=== PATIENT | female | born 1970 | race Caucasian/White ===

== ENCOUNTER 2016-05-12 15:15 | Emergency (ER) | payer OTHER ==
[~2016-05-12] VITALS: Ht 177.8 cm; Wt 75.0 kg
[2016-05-12 15:29] VITALS: BP 115/85; PULSE 82; RESP 16; TEMP 98.2; O2SAT 100
--- NOTE | 2016-05-12 16:04 | PD ---
HPI Chief Complaint: Skin Problem Time Seen by Provider: 16:03 Travel History International Travel<30 days: No Contact w/Intl Traveler<30days: No Traveled to known affect area: No History of Present Illness HPI 45-year-old left-hand dominant female presents to the ED for evaluation of "months long" history of right elbow pain. Gradual onset, worsened by certain motions. Worsened by certain motions. States that the pain sometimes "shoots" into the elbow. She denies injury to the area. Denies numbness, tingling, weakness, limitations to range of motion of the right upper extremity. 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 No treatment attempted at home. PFSH Past Medical History Medical History: Denies Significant Hx Diminished Hearing: No Tetanus Vaccination: > 5 Years Influenza Vaccination: No ?: Not Past Surgical History Surgical History: No Previous Surgery Social History Alcohol Use: Yes Tobacco Use: Yes (03/24 PPD) Substance Use: No Allergies-Medications (Allergen,Severity, Reaction): Coded Allergies: No Known Allergies (Verified , 05/12/16) Uncoded Allergies: NARCOTICS (Adverse Reaction, Unknown, Psychosis, 05/29/10) Reported Meds & Prescriptions Reported Meds & Active Scripts Active MATT Tennis Elbow Strap/Cu (Elastic Bandages & Supports) 1 Mis Mis Bandage wear on right arm while working Ibuprofen 600 Mg Tab 600 Mg PO Q8HR Review of Systems Except as stated in HPI: all other systems reviewed are Neg Physical Exam Narrative GENERAL: Well-nourished, well-developed patient. SKIN: Warm and dry. There is a 1.5 cm firm, nontender, mobile nodule just distal to the antecubital area of the right forearm. Consistent with lipoma. HEAD: Normocephalic. EYES: No scleral icterus. No injection or drainage. NECK: Supple, trachea midline. No JVD or lymphadenopathy. CARDIOVASCULAR: Regular rate and rhythm without murmurs, gallops, or rubs. RESPIRATORY: Breath sounds equal bilaterally. No accessory muscle use. GASTROINTESTINAL: Abdomen soft, non-tender, nondistended. MUSCULOSKELETAL: No cyanosis, or edema. FOCUSED RIGHT UPPER EXTREMITY EXAM: 2+ radial pulse. There is localized tenderness in the lateral epicondyle of the right humerus. There is pain with resisted wrist extension and terminal wrist flexion with the elbow in full extension. No limitations to range of motion of the elbow or wrist. Patient has strong turnaround engineer strength. Negative Tinel sign. Sensation intact to light touch distally. Cap refill less than 2 seconds. BACK: Nontender without obvious deformity. No CVA tenderness. Data Data Last Documented VS Vital Signs Date Time Temp Pulse Resp B/P Pulse Ox O2 Delivery O2 Flow Rate FiO2 05/12/16 15:29 98.2 82 16 115/85 100 MDM Medical Decision Making Medical Screen Exam Complete: Yes Emergency Medical Condition: Yes Differential Diagnosis tennis elbow versus carpal tunnel versus osteoarthritis versus Narrative Course 45-year-old left-hand dominant female presents to the ED for evaluation of right elbow pain. Gradual onset, worsened by certain motions, shooting into the elbow. She denies injury to the area,numbness, tingling, weakness, limitations to range of motion of the right upper extremity. 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 Vitals reviewed. Physical exam reveals a nontoxic-appearing white female in no acute distress. Patient has a 1.5 cm rubbery, mobile, painless nodule just distal to the antecubital area on the anterior aspect of the right elbow, consistent with lipoma. Focused right upper extremity exam reveals localized tenderness in the lateral epicondyle of the right humerus, pain with resisted wrist extension and internal versus flexion with elbow in full extension. No limitations to range of motion of the elbow or wrist, strong turnaround engineer strength, negative Tinel sign, neurovascularly intact. Physical exam consistent with tennis elbow. Patient was prescribed short course of anti-inflammatory medications and the Velcro brace. She is instructed to use the brace when working, take medications as needed, follow up with the orthopedist or her primary care provider. She indicated understanding of the instructions and is amenable to plan of care. She is stable and discharged home. Diagnosis Primary Impression: Lateral epicondylitis of right elbow Referrals: Orthopedist Patient Instructions: General Instructions, Tennis Elbow (ED), Tennis Elbow Exercises (GEN) Additional Instructions: Rest, ice, elevate the extremity. Apply ice no longer than 10-15 minutes per hour a few times a day. 600 mg ibuprofen up to 3 times a day as needed for pain, swelling. Return to normal, gentle activity as tolerated. Wear a velco brace for tennis elbow, available over the counter at the drug store, Follow up with orthopedist or your primary care provider. Return to the ED for any urgent or emergent medical condition. Med/Other Pt SpecificInfo: Prescription(s) given Scripts Elastic Bandages & Supports (MATT Tennis Elbow Strap/Cu)1 Mis Mis #1 Bandage wear on right arm while working Prov:Hafsa Wallace MD 05/12/16 Ibuprofen 600 Mg [id number] Mg PO Q8HR #15 TAB Ref 0 Prov:Hafsa Wallace MD 05/12/16 Disposition: 01 DISCHARGE HOME Condition: Stable Milena Mckeon May 12, 2016 16:04
[2016-05-12] MEDS ORDERED: IBUP-232 PO (16:12)
[2016-05-12] MEDS ORDERED: [UNRECOGNIZED DRUG - CODE] (16:12)
== END 2016-05-12 16:21 | disposition home or self-care (01) ==
LOC: PHEFT 15:15
DX: M77.11 Lateral epicondylitis, right elbow (principal); F17.210 Nicotine dependence, cigarettes, uncomplicated
CPT/HCPCS: 99283

== ENCOUNTER 2017-04-09 04:05 | Emergency (ER) | payer SELFPAY ==
[~2017-04-09] VITALS: Ht 177.8 cm; Wt 74.5 kg
[~2017-04-09 04:05] MED LIST: IBUP-232 PO; [UNRECOGNIZED DRUG - CODE]
[2017-04-09 04:07] VITALS: BP 137/97; PULSE 88; RESP 18; TEMP 97.5; O2SAT 98
--- NOTE | 2017-04-09 04:39 | PD ---
HPI Chief Complaint: Laceration/Skin Injury Time Seen by Provider: 04:34 Travel History International Travel<30 days: No Contact w/Intl Traveler<30days: No Traveled to known affect area: No History of Present Illness HPI 46-year-old left hand dominant white female presents to emergency department with a laceration to her right hand from a piece of glass that she was washing this evening. She states the glass broke cutting her hand. Patient's up-to- date with immunizations. She states the pain is mild. She denies any numbness or tingling. No foreign body sensation. No weakness. No alleviating factors. Worse with movement and palpation. PFSH Past Medical History Medical History: Denies Significant Hx Diminished Hearing: No Tetanus Vaccination: > 5 Years Influenza Vaccination: No ?: Not LMP: 04/02/16 Past Surgical History Surgical History: No Previous Surgery Social History Alcohol Use: Yes (occaisonal alcohol ) Tobacco Use: Yes (03/24 PPD) Substance Use: No Allergies-Medications (Allergen,Severity, Reaction): Coded Allergies: No Known Allergies (Verified , 05/12/16) Uncoded Allergies: NARCOTICS (Adverse Reaction, Unknown, Psychosis, 05/29/10) Reported Meds & Prescriptions Reported Meds & Active Scripts Active No Active Prescriptions or Reported Medications Review of Systems General / Constitutional: No: Fever Eyes: No: Visual changes HENT: No: Headaches Cardiovascular: No: Chest Pain or Discomfort Respiratory: No: Shortness of Breath Gastrointestinal: No: Abdominal Pain Genitourinary: No: Dysuria Musculoskeletal: No: Pain Skin: No Rash Neurologic: No: Weakness Psychiatric: No: Depression Endocrine: No: Polydipsia Hematologic/Lymphatic: No: Easy Bruising Physical Exam Narrative GENERAL: This is a well-nourished, well-developed patient, in no apparent distress. SKIN: No rashes, ecchymoses or lesions. Warm and dry. HEAD: Atraumatic. Normocephalic. EYES: PERRL, EOMI, no discharge or injection. No scleral icterus. EARS: Clear NOSE: Nasal turbinates appear normal. THROAT: Mucosa pink and moist. Airway patent. NECK: Trachea midline. supple, moves head freely. LUNGS: Clear to auscultation. CV: Regular in rhythm. ABDOMEN: Soft nontender. EXT: No clubbing cyanosis or edema. Patient has a 3 cm laceration over the dorsal surface of the right hand between the carpal heads of the second and third metacarpals. Laceration goes into the subcutaneous tissues. No foreign body. No deep injury. No tendon or nerve injury. Full range of motion with good strength. Good Refill distally. Data Data Last Documented VS Vital Signs Date Time Temp Pulse Resp B/P (MAP) Pulse Ox O2 Delivery O2 Flow Rate FiO2 04/09/17 04:07 97.5 88 18 137/97 (110) 98 Room Air MDM Medical Decision Making Medical Screen Exam Complete: Yes Emergency Medical Condition: Yes Medical Record Reviewed: Yes Differential Diagnosis MDM: High Differential diagnoses: Fracture, sprain, strain, dislocation, contusion, neurovascular injury Narrative Course pATIENT'S LACERATION IS CLOSED WITH SUTURES. Procedures Procedure Narrative LACERATION LOCATION: Right hand LENGTH: 3 cm NUMBER OF STITCHES/APURVA: 6 REPAIR: The area of the laceration was prepped with Betadine and sterilely draped. The laceration was infiltrated with 1% lidocaine. The wound was copiously irrigated and explored without evidence of foreign body, tendon injury or neurovascular injury. The wound was closed using 5-0 proline. This was a simple single layer repair. A sterile dressing was applied. The patient was advised to keep the dressing clean and dry. Patient tolerated the procedure well. Diagnosis Primary Impression: laceration right hand Patient Instructions: General Instructions Additional Instructions: Rest. Elevation. Daily wound care with soap, water, Neosporin. Tylenol or Advil for pain. Sutures out in 14 days. Return to the ER if any problems. Med/Other Pt SpecificInfo: Wound Care Scripts No Active Prescriptions or Reported Meds Disposition: 01 DISCHARGE HOME Condition: Stable Luisito Hernandez Apr 09, 2017 04:39
== END 2017-04-09 05:09 | disposition home or self-care (01) ==
LOC: NEPD 04:05
DX: S61.411A Laceration without foreign body of right hand, initial encounter (principal); F17.200 Nicotine dependence, unspecified, uncomplicated; W25.XXXA Contact with sharp glass, initial encounter; Y93.89 Activity, other specified
CPT/HCPCS: 12002